=== PATIENT | female | born 1965 | race African-American/Black ===

== ENCOUNTER 2018-07-28 14:27 | Outpatient (CLI) | payer OTHER ==
--- NOTE | 2018-08-05 11:31 | MMO ---
BILATERAL SCREENING MAMMOGRAM: Date: 07/28/18 COMPARISON: 01/24/17, 06/30/14, 06/29/13. HISTORY: Annual screening exam. This patient's mammogram was interpreted with the assistance of computer-aided detection. FINDINGS: Scattered fibroglandular changes of both breasts are noted. On the CC projection of the right breast, there is a slightly lobulated appearing nodular density see n in the more inner aspect of the right breast, difficult to definitely localize on the CC projection , possibly an area within the upper portion of the breast. This does appear different as compared to previous studies. IMPRESSION: BIRADS 0: Incomplete: Need Additional Imaging Evaluation and/or Prior Mammograms for Comparison Assessment incomplete. Further imaging required. A diagnostic mammogram to include focal spot views o f the density as seen on the CC projection. If this density is seen on 2 views and seen to persist on the imaging, then ultrasound will be required for further assessment. The facility will notify patient of need for additional imaging services. POS: ANGELO
== END 2018-07-28 14:28 | disposition home or self-care (01) ==
LOC: SCSMAMMO 14:27
PROVIDERS: ATTEND Family Medicine
DX: Z12.31 Encounter for screening mammogram for malignant neoplasm of breast (principal)
CPT/HCPCS: 77067

== ENCOUNTER 2018-08-25 12:43 | Emergency (ER) | payer OTHER ==
[2018-08-25] MEDS ORDERED: Proparacaine 0.5% Opth 15 ML BOT ONE (13:08)
[2018-08-25] MEDS ORDERED: Fluorescein Opthalmic Strip ONE (13:08)
[2018-08-25] MEDS ORDERED: Ibuprofen 200 MG TAB ONE (13:30)
[2018-08-25] MEDS ORDERED: Tobramycin Sulfate 0.3% Ophth Susp 5 ml Bottle ONE (13:37)
== END 2018-08-25 13:43 | disposition home or self-care (01) ==
LOC: ERS 12:43
DX: S05.01XA Injury of conjunctiva and corneal abrasion without foreign body, right eye, initial encounter (principal); J45.909 Unspecified asthma, uncomplicated; F20.9 Schizophrenia, unspecified; F31.9 Bipolar disorder, unspecified; X58.XXXA Exposure to other specified factors, initial encounter
CPT/HCPCS: 99283

== ENCOUNTER 2018-09-04 08:10 | Outpatient (CLI) | payer OTHER | END 2018-09-04 08:11 | disposition home or self-care (01) | LOC: BICMAMMO 08:10 | PROVIDERS: ATTEND Family Medicine | DX: R92.2 Inconclusive mammogram (principal); Z80.3 Family history of malignant neoplasm of breast | CPT/HCPCS: G0279 ==

== ENCOUNTER 2018-12-17 18:08 | Emergency (ER) | payer OTHER ==
[2018-12-17] MEDS ORDERED: Adacel (T-DAP) 0.5 ML SYRINGE ONE (19:27)
[2018-12-17] MEDS ORDERED: HYDROcodone/Acetaminophen 10/325 mg Tablet ONE (20:14)
--- NOTE | 2018-12-17 21:55 | RAD ---
RADIOGRAPH RIGHT SECOND DIGIT THREE VIEWS: 12/17/18 HISTORY: 53-year-old female status post trauma to index finger by dog bite. FINDINGS: There is no acute fracture, dislocation, radiopaque foreign body or subcutaneous emphysema, involving the first, middle and distal phalanges of the second digit and surrounding soft tissues. There is an old, healed fracture deformity of the proximal and mid diaphysis of the second metacarpal . There is irregularity of the cortical surface of the head of the first metacarpal, without signifi cant joint space narrowing at the first MCP joint. IMPRESSION: 1. No acute fracture of second digit. 2. Old, healed fracture of second metacarpal shaft. 3. 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 POS: JIN
== END 2018-12-17 20:44 | disposition home or self-care (01) ==
LOC: ERS 18:08
DX: S61.250A Open bite of right index finger without damage to nail, initial encounter (principal); F31.9 Bipolar disorder, unspecified; F20.9 Schizophrenia, unspecified; J45.909 Unspecified asthma, uncomplicated; W54.0XXA Bitten by dog, initial encounter
CPT/HCPCS: 90471; 90715

== ENCOUNTER 2019-06-09 08:07 | Outpatient (CLI) | payer OTHER ==
--- NOTE | 2019-06-09 09:23 | CT ---
CT ABDOMEN AND PELVIS WITH ORAL AND IV CONTRAST: HISTORY: Lower abdominal pain. FINDINGS: There is a 3 mm nodule at the right lung base. The patient is post cholecystectomy and hysterectomy. The liver, spleen, pancreas, adrenal glands, and kidneys are normal. No free air, free fluid, or lym phadenopathy is seen in the abdomen or pelvis. The small bowel loops are no abnormally dilated. The appendix is normal. A 2.4 cm cystic mass is seen in the left adnexa. No aneurysmal dilatation of the abdominal aorta is seen. There are degenerative changes in the spine . IMPRESSION: 1. A 3 mm right basilar lung nodule. Dedicated CT scan of the chest is recommended. 2. A 2.4 cm left adnexal cystic mass, likely ovarian. Pelvic ultrasound would be helpful. POS: OFF
== END 2019-06-09 08:08 | disposition home or self-care (01) ==
LOC: BICCT 08:07
PROVIDERS: ATTEND Obstetrics & Gynecology
DX: R10.9 Unspecified abdominal pain (principal); R91.1 Solitary pulmonary nodule; N83.8 Other noninflammatory disorders of ovary, fallopian tube and broad ligament
CPT/HCPCS: 74177

== ENCOUNTER 2019-07-22 12:47 | Outpatient (CLI) | payer OTHER ==
--- NOTE | 2019-07-22 14:03 | CT ---
CT OF THE THORAX WITH IV COTNRAST: INDICATION: History of solitary pulmonary nodule. COMPARISON: CT of the abdomen and pelvis dated 06/09/2019 and a CTA examination of the chest from [facility] dated 02/02/2015 and 03/02/2011. FINDINGS: The small 3 mm pulmonary nodule that was present retrospectively in review of the 2015 examination is benign. There is an additional benign 4 mm subpleural pulmonary nodule within the lateral right mid dle lobe. No suspicious pulmonary nodule is identified. There are areas of dependent subsegmental a telectasis involving both lower lobes. No enlarged lymph nodes are evident. Visualized upper abdome n demonstrates cholecystectomy changes. There is scattered degenerative and osteoarthritic change. No definite acute osseous abnormality is evident. IMPRESSION: Benign pulmonary nodules right middle lobe and right lower lobe. These have been stable since 2014. POS: [facility]
[2019-07-22] MEDS ORDERED: ISOVUE-370 76%-LOCM 1 ML ONE (17:15)
== END 2019-07-22 12:48 | disposition home or self-care (01) ==
LOC: BICCT 12:47
PROVIDERS: ATTEND Obstetrics & Gynecology
DX: R91.8 Other nonspecific abnormal finding of lung field (principal)
CPT/HCPCS: 71270; Q9966

== ENCOUNTER 2020-05-01 14:15 | Outpatient (CLI) | payer OTHER | END 2020-05-01 14:16 | disposition home or self-care (01) | LOC: DTY/OP 14:15 | PROVIDERS: ATTEND Family Medicine | DX: Z68.42 Body mass index [BMI] 45.0-49.9, adult (principal) | CPT/HCPCS: 97802 ==

== ENCOUNTER 2021-10-18 13:24 | Outpatient (CLI) | payer OTHER | END 2021-10-18 13:25 | disposition home or self-care (01) | LOC: BICULT 13:24 | PROVIDERS: ATTEND Family Medicine | DX: R10.2 Pelvic and perineal pain (principal); N83.202 Unspecified ovarian cyst, left side | CPT/HCPCS: 76856 ==

== ENCOUNTER 2021-11-14 13:25 | Outpatient (CLI) | payer OTHER | END 2021-11-14 13:26 | disposition home or self-care (01) | LOC: BICMAMMO 13:25 | PROVIDERS: ATTEND Family Medicine | DX: Z12.31 Encounter for screening mammogram for malignant neoplasm of breast (principal); Z80.3 Family history of malignant neoplasm of breast | CPT/HCPCS: 77067 ==

== ENCOUNTER 2023-11-03 11:09 | Outpatient (CLI) | payer OTHER | END 2023-11-03 11:10 | disposition home or self-care (01) | LOC: BICMAMMO 11:09 | PROVIDERS: ATTEND Nurse Practitioner Family | DX: Z12.31 Encounter for screening mammogram for malignant neoplasm of breast (principal); Z80.3 Family history of malignant neoplasm of breast | CPT/HCPCS: 77067 ==

== ENCOUNTER 2023-11-05 14:26 | Outpatient (CLI) | payer OTHER | END 2023-11-05 14:27 | disposition home or self-care (01) | LOC: ULT 14:26 | PROVIDERS: ATTEND Advanced Practice Midwife | DX: R60.0 Localized edema (principal) | CPT/HCPCS: 93970 ==